=== PATIENT | female | born 2000 | race Caucasian/White ===

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

== ENCOUNTER 2023-01-28 17:47 | Emergency (ER) | payer OTHER, SELFPAY ==
--- NOTE | ~2023-01-28 | XR_ITS ---
XR finger 5th RT min 2V 01/28/2023 18:06 INDICATION: Right fifth finger pain after trauma PROCEDURE: 4 views right fifth finger COMPARISON: No prior studies for comparison. FINDINGS: Fracture, dislocation or subluxation is not identified. The soft tissues appear within norm al limits. No foreign bodies are identified. IMPRESSION: 1: NO ACUTE BONE OR JOINT ABNORMALITY IDENTIFIED. Reviewed, dictated and finalized at location A.
[2023-01-28 17:54] VITALS: BP 122/80; PULSE 102; RESP 18; TEMP 36.4; O2SAT 100
--- NOTE | 2023-01-28 17:59 | ED.UPPEXIN ---
HPI - Extremity Injury (Upper) General Chief Complaint: Extremity Injury, Upper Stated Complaint: Finger Injury Source: patient and RN notes reviewed History of Present Illness HPI narrative: 22 yo F presents to urgent care with complaints of right pinky finger pain and swelling. Pt states about an hour [employer], a headboard fell onto her pinky finger. Pt states she has applied ice which has helped some. Pt denies any other injuries or other complaints. Related Data Home Medications Medication Instructions Recorded Confirmed norgestimate 0.25 mg-ethinyl 1 tablet PO DAILY 09/07/21 01/28/23 estradiol 35 mcg tablet (Estarylla) venlafaxine 37.5 mg 37.5 mg PO DAILY 09/07/21 01/28/23 capsule,extended release 24 hr hydroxyzine HCl 25 mg tablet 25 mg PO TID PRN Anxiety 01/28/23 01/28/23 Allergies Allergy/AdvReac Type Severity Reaction Status Date / Time No Known Allergies Allergy Verified 09/07/21 16:28 Review of Systems Review of Systems: CONSTITUTIONAL: Denies fever, chills, or sweats. EYES: Denies visual changes, redness, or discharge. ENT: Denies otalgia and sore throat CARDIOVASCULAR: Denies chest pain, palpitations, or edema. RESPIRATORY: Denies cough or dyspnea. GASTROINTESTINAL: Denies abdominal pain, nausea, vomiting, or diarrhea. GENITOURINARY: Denies dysuria or hematuria. SKIN: Denies rash or itching. MUSCULOSKELETAL: Right pinky pain and swelling. NEUROLOGIC: Denies headache, numbness, or weakness. Pertinent positives per HPI. [facility] Past Medical History Medical History No acute medical problems Family History Family History Grandparent Hypertension Family history of seizure disorder Mother Hypothyroid Social History Social History Smoking status: Former smoker Tobacco type: e-cigarettes/vaping Alcohol intake: current Comments At the time of my signature, I reviewed and agree with the nursing past medical, surgical, social, and family history. There is no relevant family history pertinent to the patient complaint. Exam Narrative: GENERAL: This is a well-nourished, well-developed patient, in no apparent distress. HEAD: normocephalic, atraumatic. EYES: Sclera clear/white. Vision is grossly intact. EARS: External ears normal, auditory canals clear and without drainage. Hearing grossly intact. NECK: Neck supple, non-tender without lymphadenopathy, masses or thyromegaly. CARDIOVASCULAR: Regular rate RESPIRATORY: No respiratory distress SKIN: warm, intact with no suspicious lesions or rash, good texture and turgor. NEURO: awake, alert, and oriented to person, place and time. There were no obvious focal neurologic abnormalities. EXTREMITIES: Right pinky edema, tenderness, and ecchymosis over proximal phalanx up to PIP joint. Course Course Level of Care: [facility] Visit Vital Signs Vital signs: Vital Signs Temperature 97.5 F L 01/28/23 17:54 Pulse Rate 102 H 01/28/23 17:54 Respiratory Rate 18 01/28/23 17:54 Blood Pressure 122/80 01/28/23 17:54 Pulse Oximetry 100 01/28/23 17:54 Oxygen Delivery Room Air 01/28/23 17:54 Temperature 97.5 F L 01/28/23 17:54 Pulse Rate 102 H 01/28/23 17:54 Respiratory Rate 18 01/28/23 17:54 Blood Pressure 122/80 01/28/23 17:54 Pulse Oximetry 100 01/28/23 17:54 Oxygen Delivery Room Air 01/28/23 17:54 Reviewed MDM - Extremity Injury (Upper) MDM Narrative Medical decision making narrative: Use the RICE method at home. May take ibuprofen and/or Tylenol if needed. If symptoms persist in 1 week after conservative treatment, follow-up with specialist. Differential Diagnosis Differential diagnosis: Likely finger sprain, dislocation of finger and other (Finger fracture) Imaging Data Radiologist's impression: [facility] [place] [facility]
== END 2023-01-28 18:27 | disposition home or self-care (01) ==
PROVIDERS: Emergency Provider Nurse Practitioner Family; PCP Family Medicine
DX: S60.051A Contusion of right little finger without damage to nail, initial encounter (principal); W20.8XXA Other cause of strike by thrown, projected or falling object, initial encounter
CPT/HCPCS: 73140; 99213; G0463

== ENCOUNTER 2023-05-03 18:34 | Emergency (ER) | payer OTHER, SELFPAY ==
--- NOTE | ~2023-05-03 | XR_ITS ---
XR foot RT min 3V DATE: 05/03/2023 18:54 INDICATION: Fall. Inversion injury. There is a linear and reticular other 1. Probably TECHNIQUE: 4 views COMPARISON: None FINDINGS: No fracture or dislocation, periosteal reaction or bone destruction. IMPRESSION: Negative Reviewed, dictated and finalized at location A. IMPRESSION: Negative
--- NOTE | ~2023-05-03 | XR_ITS ---
XR ankle RT min 3V DATE: 05/03/2023 18:54 INDICATION: Fall. Inversion injury. TECHNIQUE: 4 views COMPARISON: None FINDINGS: There is mild lateral soft tissue swelling. No fracture or dislocation of the ankle or disr uption of the ankle mortise. No periosteal reaction or bone destruction. IMPRESSION: Mild lateral soft tissue swelling; no fracture or dislocation Reviewed, dictated and finalized at location A.
[2023-05-03 18:40] VITALS: BP 119/73; PULSE 105; RESP 20; TEMP 36.1; O2SAT 100
--- NOTE | 2023-05-03 19:11 | ED.LOWEXIN ---
HPI - Extremity Injury (Lower) General Chief Complaint: Extremity Injury, Lower Stated Complaint: Fall Injury/Right Ankle Time Seen by Provider: 05/03/23 18:55 Source: patient, RN notes reviewed and old records reviewed Mode of arrival: ambulatory Limitations: no limitations History of Present Illness HPI Narrative: 22-year-old female accompanied by mother presents [facility] with complaints being on step ladder today than rolling her foot and falling off onto her ankle with pain and swelling to the lateral aspect of her right ankle, Patient reports that foot rolled underneath .her and weight went onto lateral ankle with swelling present and most discomfort present to lateral aspect.Patient reports increase pain with movement and walking. Patient has strong pedal pulse to right foot no obvious deformity present. Patient reports she was helping friend paint when she fell. MD complaint: ankle injury and foot injury Onset (ago): hour(s) (12:00 today) Severity scale (1-10): 6 Treatments prior to arrival: other (none) Related Data Home Medications Medication Instructions Recorded Confirmed norgestimate 0.25 mg-ethinyl 1 tablet PO DAILY 09/07/21 01/28/23 estradiol 35 mcg tablet (Estarylla) venlafaxine 37.5 mg 37.5 mg PO DAILY 09/07/21 01/28/23 capsule,extended release 24 hr hydroxyzine HCl 25 mg tablet 25 mg PO TID PRN Anxiety 01/28/23 01/28/23 Allergies Allergy/AdvReac Type Severity Reaction Status Date / Time No Known Allergies Allergy Verified 09/07/21 16:28 Review of Systems Review of Systems: CONSTITUTIONAL: Denies fever, chills, or sweats. EYES: Denies visual changes, redness, or discharge. ENT: Denies rhinorrhea, congestion, sore throat, or otalgia. CARDIOVASCULAR: Denies chest pain, palpitations, or edema. RESPIRATORY: Denies cough or dyspnea. GASTROINTESTINAL: Denies abdominal pain, nausea, vomiting, or diarrhea. GENITOURINARY: Denies dysuria or hematuria. SKIN: Denies rash or itching. MUSCULOSKELETAL: Denies back pain,positive for right ankle pain lateral aspect or myalgia. NEUROLOGIC: Denies headache, numbness, or weakness. PSYCHIATRIC: Positive for history of anxiety or depression. All systems reviewed & are unremarkable except as noted in HPI and below [facility] Past Medical History Medical History (Updated 05/04/23 @ 21:08 by Jackelyn Ellis NP) Anxiety and depression Asthma Bipolar disorder GERD (gastroesophageal reflux disease) Surgical History Surgical History (Updated 05/04/23 @ 21:10 by Jackelyn Ellis NP) History of ear surgery multipe due to holes in TM History of placement of ear tubes History of tonsillectomy and adenoidectomy Family History Family History Grandparent Hypertension Family history of seizure disorder Mother Hypothyroid Social History Social History (Updated 05/04/23 @ 21:10 by Jackelyn Ellis NP) Smoking status: Former smoker Tobacco type: e-cigarettes/vaping Alcohol intake: current Living arrangements: with family Gender identity (if verbalized by the patient): Female Comments At time of signature, agree with nursing past medical, surgical, social and family history. There is no relevant family history pertinent to the presenting complaint Exam Narrative: GENERAL: Well-appearing, well-nourished, and in no acute distress. HEAD: Normocephalic, atraumatic. EYES: PERRLA and EOMI. ENT: Nares clear, no rhinorrhea or epistaxis. Mucous membranes moist. NECK: Supple.no lymphadenopathy CHEST: Clear to auscultation. No respiratory distress.SAO2 100% on room air HEART: Regular rate and rhythm. No murmur heard. Normal peripheral pulses. ABDOMEN: Soft, nontender, nondistended, normal active bowel sounds. EXTREMITIES: Normal range of motion. right lateral ankle edema, strong pedal pulse right foot,nail beds jose briskly, pain to lateral ankle with movement and walking limping gait S
== END 2023-05-03 19:30 | disposition home or self-care (01) ==
PROVIDERS: Emergency Provider Registered Nurse; PCP Family Medicine
DX: S93.401A Sprain of unspecified ligament of right ankle, initial encounter (principal); S96.911A Strain of unspecified muscle and tendon at ankle and foot level, right foot, initial encounter; W17.89XA Other fall from one level to another, initial encounter; M79.671 Pain in right foot; J45.909 Unspecified asthma, uncomplicated; K21.9 Gastro-esophageal reflux disease without esophagitis; F41.9 Anxiety disorder, unspecified; F32.A Depression, unspecified
CPT/HCPCS: 73610; 73630; 99213; G0463

== ENCOUNTER 2023-11-25 19:38 | Emergency (ER) | payer OTHER, SELFPAY ==
[2023-11-25 19:45] VITALS: BP 132/83; PULSE 106; RESP 16; TEMP 36.9; O2SAT 100
[2023-11-25 19:56] VITALS: BP 132/83; PULSE 106; RESP 16; TEMP 36.9; O2SAT 100
--- NOTE | 2023-11-25 19:59 | ED.GENADULT ---
HPI - General Adult General Chief complaint: Upper Respiratory Infection Stated complaint: ears/fever Source: patient, RN notes reviewed and old records reviewed Mode of arrival: ambulatory Limitations: no limitations History of Present Illness HPI narrative: Patient presents to [facility] with complaints of ear pain, lightheadedness and feeling flushed while at work today. Patient states home. Patient states has had congestion for several weeks but states is common for her. Related Data Home Medications Medication Instructions Recorded Confirmed norgestimate 0.25 mg-ethinyl 1 tablet PO DAILY 09/07/21 11/25/23 estradiol 35 mcg tablet (Estarylla) Allergies Allergy/AdvReac Type Severity Reaction Status Date / Time No Known Allergies Allergy Verified 11/25/23 19:48 Review of Systems Constitutional: Constitutional: Reports no additional constitutional complaints, Denies body ache(s), Denies chills, Denies fatigue, Denies fever(s) and Denies headache(s) Eyes: Eyes: Reports no additional eye complaints and Denies blurry vision ENT: Reports system reviewed and no additional complaints, except as documented, Reports vertigo, Denies dizziness, Denies ear discharge, Reports otalgia, Denies facial pain, Denies headache(s), Reports nasal congestion, Denies nasal discharge, Denies sinus pain, Denies sinus pressure and Denies sore throat Cardiovascular: Cardiovascular: Reports no additional cardiovascular complaints, Denies chest pain, Denies chest pain at rest, Denies rapid heart rate and Denies dyspnea Respiratory: Respiratory: Reports no additional respiratory complaints, Denies chest congestion, Denies cough, Denies pain on inspiration, Denies pain with cough and Denies dyspnea Gastrointestinal: Gastrointestinal: Denies abdominal pain, Denies diarrhea, Denies nausea and Denies vomiting Integumentary/Breasts: Skin/Breast: Denies rash Neurologic: Reports system reviewed and no additional complaints, except as documented, Denies vertigo, Denies dizziness and Denies headache(s) Endocrine: Endocrine: Denies fatigue PMFSH Past Medical History Medical History Anxiety and depression Asthma Bipolar disorder GERD (gastroesophageal reflux disease) Surgical History Surgical History History of ear surgery multipe due to holes in TM History of placement of ear tubes History of tonsillectomy and adenoidectomy Family History Family History Grandparent Hypertension Family history of seizure disorder Mother Hypothyroid Social History Social History Smoking status: Former smoker Tobacco type: e-cigarettes/vaping Alcohol intake: current Living arrangements: with family Gender identity (if verbalized by the patient): Female Comments At the time of my signature, I reviewed and agree with the nursing past medical, surgical, social, and family history. There is no relevant family history pertinent to the patient complaint. Exam Const: General: cooperative, healthy appearing, no acute distress and well nourished Nutritional Appearance: well nourished Orientation/consciousness: patient oriented x3 Limitations: no limitations HENMT: Head: normal to inspection and normocephalic Ears: external ears normal, mastoids normal, Abnormal EAC present and TM abnormal wth effusion serous bilateral Face/Nose/Sinus: normal facial exam Face and sinus: normal facial exam Mouth: Yes Normal oral and palatal mucosa present, Yes oropharynx normal and Yes moist mucous membranes Throat: tonsils normal, uvula midline and no uvular edema Eyes: General: appearance normal, both eyes and all related structures Sclera: sclerae normal Pupils: Equal, round and reactive pupils present Resp: Effort & Inspection: no
== END 2023-11-25 19:55 | disposition home or self-care (01) ==
PROVIDERS: Emergency Provider Registered Nurse; PCP Family Medicine
DX: H65.03 Acute serous otitis media, bilateral (principal); Z20.822 Contact with and (suspected) exposure to COVID-19; F17.290 Nicotine dependence, other tobacco product, uncomplicated; J45.909 Unspecified asthma, uncomplicated; K21.9 Gastro-esophageal reflux disease without esophagitis
CPT/HCPCS: 87426; 87804; 99213; G0463

== ENCOUNTER 2024-05-26 11:30 | Emergency (ER) | payer OTHER, SELFPAY ==
--- NOTE | ~2024-05-26 | XR_ITS ---
EXAMINATION: XR chest 2V DATE: 05/26/2024 12:24 INDICATION: Coarse left lung sounds. Sick. TECHNIQUE: Frontal and lateral views of the chest were obtained. COMPARISON: Chest 2 views 11/22/2007 FINDINGS: There is no pneumonia, pleural effusion, or pneumothorax. The heart size is normal. IMPRESSION: 1. No acute cardiopulmonary disease. Reviewed, dictated and finalized at location A.
[2024-05-26 11:42] VITALS: BP 123/80; PULSE 90; RESP 15; TEMP 36.2; O2SAT 100
--- NOTE | 2024-05-26 11:54 | ED.URI ---
HPI - URI/Sore Throat General Chief Complaint: Upper Respiratory Infection Stated Complaint: chest heavy/chills Time Seen by Provider: 05/26/24 11:58 Source: patient, RN notes reviewed and old records reviewed Mode of arrival: ambulatory Limitations: no limitations History of Present Illness HPI Narrative: 23-year-old [facility] chest congestion, chills. 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 Patient tested negative at work this morning. However, patient states symptoms are getting progressively worse. Patient endorses history of asthma. Patient has attempted to treat with ibuprofen with some relief. Patient denies shortness of breath, cough, difficulty swallowing, sore throat, headache, ear pain, chest pain, allergies. Patient able to tolerate fluids by mouth. Patient requesting work note. Respirations even and nonlabored. Patient in no acute distress. Related Data Home Medications Medication Instructions Recorded Confirmed norgestimate 0.25 mg-ethinyl 1 tablet PO DAILY 09/07/21 05/26/24 estradiol 35 mcg tablet (Estarylla) hydroxyzine HCl 25 mg tablet 25 mg PO DAILY 05/26/24 05/26/24 venlafaxine 150 mg 150 mg PO DAILY 05/26/24 05/26/24 capsule,extended release 24 hr Allergies Allergy/AdvReac Type Severity Reaction Status Date / Time No Known Allergies Allergy Verified 11/25/23 19:48 Review of Systems Review of Systems: All systems reviewed & are unremarkable except as noted in HPI and below Constitutional: Constitutional: Reports as per HPI and Reports chills Eyes: Eyes: Reports no additional eye complaints ENT: Reports system reviewed and no additional complaints, except as documented Cardiovascular: Cardiovascular: Reports no additional cardiovascular complaints, Denies chest pain and Denies dyspnea Respiratory: Respiratory: Reports no additional respiratory complaints, Reports chest congestion, Denies cough and Denies dyspnea Musculoskeletal: Musculoskeletal: Reports no additional musculoskeletal complaints Neurologic: Reports system reviewed and no additional complaints, except as documented Psychiatric: Psychiatric: Reports no additional psychiatric complaints [facility] Past Medical History Medical History Anxiety and depression Asthma Bipolar disorder GERD (gastroesophageal reflux disease) Surgical History Surgical History History of ear surgery multipe due to holes in TM History of placement of ear tubes History of tonsillectomy and adenoidectomy Family History Family History Grandparent Hypertension Family history of seizure disorder Mother Hypothyroid Social History Social History Smoking status: Former smoker Tobacco type: e-cigarettes/vaping Alcohol intake: current Living arrangements: with family Gender identity (if verbalized by the patient): Female Comments At the time of my signature, I reviewed and agree with the nursing past medical, surgical, social, and family history. There is no relevant family history pertinent to the patient complaint. Exam Const: General: cooperative, no acute distress, alert, tired appearing, uncomfortable, well groomed and well nourished Nutritional Appearance: well nourished Orientation/consciousness: patient oriented x3 Limitations: no limitations HENMT: Head: normal to inspection Ears: external ears normal Face/Nose/Sinus: Normal external nose present, Normal nares present, normal facial exam, No erythema and No edema Face and sinus: normal facial exam, no erythema and no edema Mouth: Yes Normal oral and palatal mucosa present Eyes: General: appearance normal, both eyes and all related structures
== END 2024-05-26 12:46 | disposition home or self-care (01) ==
PROVIDERS: Emergency Provider Nurse Practitioner Family; PCP Family Medicine
DX: B34.9 Viral infection, unspecified (principal); F17.290 Nicotine dependence, other tobacco product, uncomplicated; J45.909 Unspecified asthma, uncomplicated; K21.9 Gastro-esophageal reflux disease without esophagitis; F41.9 Anxiety disorder, unspecified; F32.A Depression, unspecified
CPT/HCPCS: 71046; 99213; G0463

== ENCOUNTER 2024-07-27 15:44 | Emergency (ER) | payer OTHER, SELFPAY ==
[2024-07-27 16:06] VITALS: BP 143/86; PULSE 93; RESP 16; TEMP 36.3; O2SAT 100
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
[2024-07-27] MEDS: SUMAtriptan SUCCINATE 6 MG/0.5 ML VIAL SUB-Q (17:14)
[2024-07-27] MEDS: ONDANSETRON HCL ODT 4 MG TABLET PO (18:12)
[2024-07-27 18:19] LABS: Add Urine Microscopic? YES; Appearance Urine Cloudy (Clear); Bacteria Urine 1+ /hpf; Bilirubin Urine Negative (Negative); Blood Urine Negative (Negative); Color Urine Yellow (Yellow); Glucose Urine UA Negative (Negative); Ketones Urine Negative (Negative); Leukocyte Esterase Ur Negative LEU/UL (Negative); Nitrate Urine Negative (Negative); Non Pathogenic Casts 0-2; Protein Urine Negative (Negative); Specific Grav Ur 1.022 (1.001-1.035); Squamous Epithelial Cell Urine Few /hpf (Few); WBC Urine 0-5 /hpf (0-3); pH Urine 7.5 (5.0-9.0)
[2024-07-27 18:24] LABS: BEDSIDEPREGUCG Negative (Negative)
[2024-07-27 18:31] LABS: Amphetamine Screen Urine Negative (Negative); Barbiturate Screen Urine Negative (Negative); Benzodiazepines Screen Urine Negative (Negative); Cannabinoid Screen Urine Positive (Negative); Cocaine Screen Urine Negative (Negative); Methadone Screen Urine Negative (Negative); Opiate Screen Urine Negative (Negative); Phencyclidine Screen Urine Negative (Negative)
[2024-07-27 18:36] LABS: Pregnancy On Board Control Positive; Urine Pregnancy Test Negative
[2024-07-27 19:13] VITALS: BP 129/76; PULSE 87; RESP 15; TEMP 36.8; O2SAT 100
== END 2024-07-27 19:14 | disposition home or self-care (01) ==
PROVIDERS: Emergency Provider Nurse Practitioner Family; PCP Family Medicine
DX: G43.909 Migraine, unspecified, not intractable, without status migrainosus (principal); J45.909 Unspecified asthma, uncomplicated; K21.9 Gastro-esophageal reflux disease without esophagitis; F41.9 Anxiety disorder, unspecified; F31.9 Bipolar disorder, unspecified; Z87.891 Personal history of nicotine dependence
CPT/HCPCS: 36415; 80307; 81001; 81025; 96372; 99283; A9270; J3030

== ENCOUNTER 2025-01-12 17:55 | Emergency (ER) | payer OTHER, SELFPAY ==
--- OUTSIDE RECORDS SUMMARY | 2025-01-12 17:56 | XMS_ITS | Clinical Summary ---
Author Organization [facility] Address [address] [facility] [place] [address] Care Team Providers Care Counter Supervisor Name Role Phone Lashell Terrazas MD Primary Care Provider [phone] [facility],non-owned Affiliates and Associated Physician Practices is amultiple site organization consisting of ambulatory clinics and hospital sitesin [place], [place], [place] and [place]. This disclosure is being madepursuant to the Care Everywhere program and may not contain all information available regarding this patient. Last updated 18.[facility] Allergies No known active allergies Medications * Be aware that medications may not be up to date on this document. Alwaysverify current medications with the patient. Medication Sig Dispensed Refills Start Date End Date Status cetirizine (ZYRTEC ALLERGY) 10 MG gel capsule Take 10 mg by mouth once daily. Active Active Problems Problem Noted Date Diagnosed Date ADHD (attention deficit hyperactivity disorder) 12/31/2012 Family History Medical History Relation Name Comments Anesthesia Reaction Mother Bleeding Disorders Neg Hx Childhood Hearing Disorder Neg Hx Relation Name Status Comments Mother Social History Tobacco Use Types Packs/Day Years Used Date Smoking Tobacco: Never Assessed Sex and Gender Information Value Date Recorded Sex Assigned at Not on file Gender Identity Not on file Sexual Orientation Not on file Last Filed Vital Signs Vital Sign Reading Time Taken Comments Blood Pressure 110/62 12/09/2016 5:27 PM [facility] Pulse 86 12/09/2016 5:27 PM [facility] [employer] Temperature 36.8 C (98.3 F) 12/09/2016 5:27 PM [facility] Respiratory Rate 16 12/09/2016 5:27 PM [facility] Oxygen Saturation - - Inhaled Oxygen Concentration - - Weight 59.9 kg (132 lb) 12/09/2016 5:27 PM [facility] Height 162.6 cm (5' 4 ) 12/09/2016 5:27 PM [facility] Body Mass Index 22.66 12/09/2016 5:27 PM [facility] Plan of Treatment Health Maintenance Due Date Last Done Comments PAP SMEAR 2002 HIV SCREENING 2017 HPV VACCINE (1 - 3-dose series) 2017 CHLAMYDIA/GONORRHEA SCREENING 2018 MENINGOCOCCAL (Group B) VACC INE SHARED DECISION-MAKING (1 of 2 - Standard) 2018 HEPATITIS C SCREENING 07/17/2020 DTAP/TDAP/TD VACCINES (1 - Tdap) 2021 HEPATITIS B VACCINE (1 of 3 - 19+ 3-dose series) 2021 COVID-19 VACCINE (1 - 2023-2 5 season) 2024 INFLUENZA VACCINE (#1) 2024 DEPRESSION SCREENING 10/12/2024 ZOSTER VACCINE (1 of 2) 2052 HIB VACCINE Aged Out No longer eligi ble based on patient's age to complete this topic MENINGOCOCCAL GROUPS A/C/Y/W VACCINE Aged Out No longer eligible b ased on patient's age to complete this topic PNEUMOCOCCAL VACCINE Aged Out No long er eligible based on patient's age to complete this topic Care Teams Counter Supervisor Relationship Specialty Start Date End Date Lashell Terrazas MD [address] [place] [address] DR MATHIS [address] [place] [id number] PCP - General 01/13/12
--- OUTSIDE RECORDS SUMMARY | 2025-01-12 17:56 | XMS_ITS | Clinical Summary ---
Author Organization [facility] Address [facility] [place] [address] Care Team Providers Care Occup Ther Name Role Phone Unavailable Primary Care Provider Unavailabl e Social History Tobacco Use Types Packs/Day Years Used Date Smoking Tobacco: Never Assessed Comments Unknown Sex and Gender Information Value Date Recorded Sex Assigned at Not on file Legal Sex Female 4:41 PM CDT Gender Identity Not on file Sexual Orientation Not on file Plan of Treatment Health Maintenance Due Date Last Done Comments Cervical Cancer Screening Pa p Smear (Age 21 to 29) Every 3 Years 2002 Cervical Cancer Screening 2002 Annual Physical 2005 HPV Vaccines (1 - 3-dose series) 2017 Meningococcal B Vaccine (1 o f 2 - Standard) 2018 Hepatitis C 2020 DTaP, Tdap and Td Vaccines ( 1 - Tdap) 2021 Hepatitis B Vaccines (1 of 3 - 19+ 3-dose series) 2021 COVID-19 Vaccine (1 - 2023-2 5 season) 2024 Meningococcal Vaccine Aged Out No mike paige eligible based on patient's age to complete this topic Pneumococcal Vaccine: Pediat rics (0 to 5 Years) and At-Risk Patients (6 to 64 Years) Aged Out No longer eligible b ased on patient's age to complete this topic RSV Immunizations Under 20 Months Aged Out No longer eligible based on patient's age to complete this topic
--- OUTSIDE RECORDS SUMMARY | 2025-01-12 17:56 | XMS_ITS | Clinical Summary ---
Author Organization [facility] ospital Address [address] [place] [address] Care Team Providers Care Legal Administrative Assistant Name Role Phone Madan Roblero MD Primary Care Provider [phone] Allergies No known active allergies Medications EPINEPHrine (AUVI-Q) 0.3 mg/0.3 mL auto-injection syringeIndication s:Anaphylaxis Inject 0.3 mL (0.3 mg total) into the muscle as instructed as needed for anaphylaxis 4 each 1 Active Additional Information Patient not taking.Reported on 08/01/2024 ondansetron ODT (ZOFRAN-ODT) 4 mg disintegrating tablet Take 1 tablet (4 mg total) by mouth every 8 (eight) hours as needed for nausea or vomiting 20 tablet Active SUMAtriptan (IMITREX) 25 mg tablet Patient has not picked up script yet, was not ready at pharmacy. Active ALPRAZolam (XANAX) 0.5 mg tablet Take 1 tablet by mouth 1 hour prior to MRI and 1 tablet immediately prior to MRI. 2 tablet Active venlafaxine XR (EFFEXOR-XR) 150 mg 24 hr capsule TAKE 1 CAPSULE(150 MG) BY MOUTH DAILY 100 capsule 1 11/25/2 024 Active hydrOXYzine (ATARAX) 25 mg tablet TAKE 1 TABLET(25 MG) BY MOUTH EVERY 8 HOURS NEEDED FOR ANXIETY 270 tablet 025 Active Estarylla 0.25-35 mg-mcg per tablet TAKE 1 TABLET BY MOUTH DAILY 84 tablet 025 Active hydrOXYzine (ATARAX) 25 mg tablet TAKE 1 TABLET(25 MG) BY MOUTH EVERY 8 HOURS NEEDED FOR ANXIETY 270 tablet 024 2024 Discontinued norgestimate-ethi nyl estradioL (Estarylla) 0.25-35 mg-mcg per tablet TAKE 1 TABLET BY MOUTH DAILY 84 tablet 025 2024 Discontinued Active Problems Problem Noted Date Diagnosed Date Severe episode of recurrent major depressive disorder, without psychotic features 08/11/2024 Ankle injury 10/29/2023 Contusion of finger 10/29/2023 Foot pain, right 10/29/2023 JENNIFER (generalized anxiety disorder) 10/29/2023 Assessment & Plan (10/29/2023 11:18 AM HEAD SWAMPER): Patient is doing well, continue venlafaxine. She is taking hydroxyzine nightly to help asleep. Sleeping well. Patient feels that she is benefitting from the emotional support provided by her animals. Nonintractable episodic headache 10/29/2023 Assessment & Plan (10/29/2023 11:21 AM HEAD SWAMPER): Recommended continuing to drink plenty of fluids. Encouraged patient to get plenty of sleep, at least 8 hours nightly. Eat regular meals throughout the day. Recommended she keep headache log to track potential triggers. Encouraged follow-up with Ophthalmology as patient states that she is previously recommended to wear glasses which she currently does not. Explained how this can be contributing to headache and sometimes headaches can increase while adjusting to prescription lenses. Reviewed red flags Recurrent major depression 07/01/2022 Assessment & Plan (10/29/2023 11:18 AM HEAD SWAMPER): Moods are stable at this time. Continue present management with venlafaxine. Assessment & Plan (10/03/2022 9:15 AM HEAD SWAMPER): Reviewed pharmacologic treatment options for management of anxiety including SSRI/SNRIs. Patient to continue venlafaxine and will add buspirone 5 mg three times daily. Reviewed medication and adverse effects. Encouraged patient to engage with counselor again, discussed benefits of counseling with problems related to family dynamics. Recommend healthy eating and regular exercise. Seek immediate medical attention if experiencing SI/HI. Will continue to monitor. Follow-up in 3 months. Depression with anxiety 01/14/2021 COVID-19 04/15/2020 Assessment & Plan (04/15/2020 12:59 AM CDT): Tabitha is a 19 year old female with PMH significant for mild intermittent asthma who presents with tachypnea, tachycardia, and chest pain in the setting of a known Covid 19 infection. Her symptoms are currently mild to moderate, she is afebrile, in no respiratory distress, and not requiring any supplemental oxygen. She could have an early covid pneumonia or bacterial pneumonia, but normal exam findings and chest xray from ED does without any focal process or congestion are reassuring. She is at higher risk for DVT/PE since Covid can cause hypercoagulability but she does not have any other risk factors and her current exam is reassuring without any signs of tachypnea, tachycardia, or calf pain or swelling. Given her asthma history, her differential includes an asthma exacerbation, but since she did not note much symptom improvement with albuterol, and lack of wheeze on exam, this is less likely, but will continue to treat her for an asthma exacerbation with albuterol given her potential risk for development or worsening of asthma symptoms. Current evidence mixed on initiation of systemic steroids for Covid positive patients with mild asthma. She did receive prednisone in the ED, will likely watch clinical course to determine need for continued oral steroid use. Discussed with Mom current CDC guidelines regarding community Covid exposure and risk. Informed Mom that regardless of Covid test results, close contacts including herself, Dad, and step Mom should all self isolate for 14 days to monitor for the development of symptoms. Any other close contacts to known positive cases such as Tabitha 2 days prior to the case developing symptoms or any contact during symptomatic period should also self isolate for 14 days. Of note, Tabitha did work a few days after developing symptoms, her employer has been informed. Plan: -Albuterol inhaler q4 hours -S/p prednisone 7/4 pm, will discuss need for continued steroid need pending clinical course -Contact and droplet precautions with face shield -Monitor for development DVT/PE signs and symptoms -Tylenol PRN Mild intermittent asthma without complication Assessment & Plan (04/15/2020 1:05 AM CDT): History of mild intermittent asthma. Prior to Covid infection, symptom had been minimal without use of or need for albuterol or flovent. Minimal wheezing noted on exam, but will treat as if an asthma exacerbation to prevent worsening of symptoms given Covid infection. Plan: -q4 albuterol inhaler -Hold home flovent while on oral steroids Acute urticaria 05/12/2019 Angio-edema 05/12/2019 History of tympanoplasty 02/17/2018 ETD (Eustachian tube dysfunction), bilateral 07/2018 Assessment & Plan (10/29/2023 11:17 AM HEAD SWAMPER): No evidence of perforation today. Scarring noted bilaterally, right greater than left. Recommended patient use Flonase nasal spray to help with fluid/pressure in ears. Referral placed to ENT. No evidence of infection. Assessment & Plan (04/15/2020 1:00 AM CDT): History of chronic bilateral eustachian tube dysfunction and bilateral chronic otitis externa. Current symptoms typical for patient. Plan: -Continue home ocuflox drops ETD (eustachian tube dysfunction) 10/21/2017 History of surgical procedure 10/21/2017 Cerumen debris on tympanic membrane, bilateral 0 04/29/2017 Conductive hearing loss in right ear 04/29/2017 Conductive hearing loss, bilateral 05/14/2016 Compound nevus 02/15/2014 ADHD (attention deficit hyperactivity disorder) 12/31/2012 Adhesive otitis 08/04/2012 Tympanic membrane perforation 05/25/2012 Arthralgia of ankle 01/13/2012 Right ankle sprain 03/21/2010 Immunizations Immunization Administration Dates Next Due DTP 07/30/2007,11/03/2003,03/03/2003 DTaP 2002,2002 HPV9 05/11/2020,10/31/2019,03/10/2019 Hep A, Pediatric 05/11/2020,06/19/2015 Hep B / HiB 02/03/2003 Hep B, Adolescent or Pediatric 2002,2001 HiB 11/03/2003,2002,2002 IPV 07/30/2007, 4,2002,09/19 Influenza LAIV (Nasal) 08/16/2012 Influenza, Quadrivalent, Spl it, Intramuscular 08/07/2015 Influenza, Quadrivalent, Spl it, Preservative Free, Intramuscular 07/26/2018 Influenza, Split 08/03/2009 Influenza, Trivalent, IM (MDV) 08/25/2014,2012 Influenza, Trivalent, Preser vative Free, Intramuscular 10/13/2016,08/26/2011 Influenza, Unspecified 10/29/2023(Deferr ed: Patient Refused),11/12/2022(Deferred: Patient Refused),10/03/2022(Deferred: Patient Refused),07/01/2022(Deferred: Patient Refused),06/12/2022(Deferred: Patient Refused),07/12/2021(Deferred: Patient Refused),07/12/2021(Deferred: Patient Refused) MMR 07/30/2007,07/28/2003 Meningococcal Conjugate (Menveo) 10/31/2019,07/0 11/2013 Pneumococcal Conjugate 7-Valent 07/25/20 04,02/03/2003,2002,09/19 Tdap 04/12/2014 Varicella 07/30/2007,07/28/2003 Surgical History Surgery Date Site/Laterality Comments TYMPANOSTOMY TUBE PLACEMENT Ear Pressure Equalization Tube, Insertion, Bilaterally - (Added by TW Conv) [place] TONSILLECTOMY & ADENOIDECTOMY <AGE 12 10/12/2004 - 10/11/2005 Tonsillectomy With Adenoidectomy - (Added by TW Conv) ADENOIDECTOMY W/ MYRINGOTOMY AND TUBES TONSILECTOMY, ADENOIDECTOMY, BILATERAL MYRINGOTOMY AND TUBES Medical History Medical History Date Comments Urticaria Mild intermittent asthma Otitis externa, chronic History of being hospitalized [facility] for pneumonia at 10 years of age, another stay for COVID 04/2020 Depression Anxiety Family History Medical History Relation Name Comments Anxiety disorder Father Depression Father Alzheimer's disease Maternal Grandfather Diabetes Maternal Grandfather Heart disease Maternal Grandfather Kidney disease Maternal Grandfather Stroke Maternal Grandfather Allergic rhinitis Mother Asthma Mother Cervical cancer Mother Epilepsy Mother Hypothyroidism Mother Sleep apnea Mother Relation Name Status Comments Father Maternal Grandfather Mother Social History Tobacco Use Types Packs/Day Years Used Date Smoking Tobacco: Every Day Cigarettes Smokeless Tobacco: Former Tobacco Cessation:Ready to Q uit: Not Asked; Counseling Given: Not Answered Alcohol Use Standard Drinks/Week Comments No 0 (1 standard drink = 0.6 oz pur e alcohol) PHQ-2 Answer Date Recorded PHQ-2 Total Score (If total score is 3 or more points, staff should administer the PHQ-9) 0 08/01/2024 Comments No Sex and Gender Information Value Date Recorded Sex Assigned at Not on file Legal Sex Female 1:03 AM HEAD SWAMPER Gender Identity Not on file Sexual Orientation Not on file History Length Weight Head Circum Date/Time Gestation Age D/C Weight APGARs Delivery Method Feeding 6 lb 10 oz (3.005 kg) 2000 Born 3.5 weeks early. Did no t require ventilatory support. May have required supplemental oxygen support. Obstetrics History Last Filed Vital Signs Vital Sign Reading Time Taken Comments Blood Pressure 116/88 08/01/2024 11:18 AM CDT Pulse 95 08/01/2024 11:18 AM CDT Temperature 36.8 C (98.3 F) 08/01/2024 11:18 AM CDT Respiratory Rate 18 08/01/2024 11:18 AM CDT Oxygen Saturation 98% 08/01/2024 11:18 AM CDT room air Inhaled Oxygen Concentration - - Weight 78.7 kg (173 lb 6.4 oz) 08/01/2024 11:18 AM CDT Height 170.2 cm (5' 7.01 ) 08/01/2024 11:18 AM C DT Body Mass Index 27.15 08/01/2024 11:18 AM CDT Plan of Treatment Health Maintenance Due Date Last Done Comments Cervical Cancer Screening 2002 Chlamydia and Gonorrhea (GC/ CT) Screening 2002 Hepatitis C Screening 2002 Pneumococcal vaccine <65 (1 of 1 - PPSV23) 2008 07/25/2004, 02/03/2003, 2002, Additional history exists Meningococcal B Vaccine (1 o f 2 - Standard) 2018 Regular Well Visit/Exam 18-64 2020 DTaP/Tdap/Td Vaccine (7 - Td or Tdap) 04/12/2024 04/12/2014, 07/30/2007, 11/03/2003, Additional history exists Influenza Vaccine (Season Ended) 2025 07/26/2018, 10/13/2016, 08/07/2015, Additional history exists Depression Screening 08/01/2025 08/01/2024, 10/29/2023, 11/12/2022, Additional history exists Hepatitis B Screening Completed 02/03/2003 , 2002, 2002 Varicella Vaccines Completed 07/30/2007, 07/28/2003 HPV Vaccines Completed 05/11/2020, 10/13, 03/10/2019 Insurance [facility] [place] [address] [place] [address] [employer] [facility] CHOICE PLUS [employer] Address: [address] [place] [address] Advance Directives For more information, please contact: [phone] * Full Code (Latest Code Status on File) Date Activated Date Inactivated Comments 04/14/2020 11:06 PM 04/15/2020 10:15 PM Care Teams Legal Administrative Assistant Relationship Specialty Start Date End Date Madan Roblero MD [address] [place] [address] PCP - General Family Medicine 07/01/22
--- OUTSIDE RECORDS SUMMARY | 2025-01-12 17:56 | XMS_ITS | Referral Summary ---
Author Organization [facility] ospital Address [address] [place] [address] Care Team Providers Care Sand Analyst Name Role Phone Madan Roblero MD Primary Care Provider [phone] Allergies No known active allergies Medications EPINEPHrine [...] 10/29/2023 Assessment & Plan (10/29/2023 11:18 AM LIVESTOCK SPECULATOR): Patient is doing well, continue venlafaxine. She is taking hydroxyzine nightly to help asleep. Sleeping well. Patient feels that she is benefitting from the emotional support provided by her animals. Nonintractable episodic headache 10/29/2023 Assessment & Plan (10/29/2023 11:21 AM LIVESTOCK SPECULATOR): Recommended continuing to drink plenty of fluids. [...] 07/01/2022 Assessment & Plan (10/29/2023 11:18 AM LIVESTOCK SPECULATOR): Moods are stable at this time. Continue present management with venlafaxine. Assessment & Plan (10/03/2022 9:15 AM LIVESTOCK SPECULATOR): Reviewed pharmacologic treatment options for management of [...] 07/2018 Assessment & Plan (10/29/2023 11:17 AM LIVESTOCK SPECULATOR): No evidence of perforation today. Scarring noted [...] Patient Refused) MMR 07/30/2007,07/28/2003 Meningococcal Conjugate (Menveo) 10/31/2019,07/11/2013 Pneumococcal Conjugate 7-Valent 07/25/20 04,02/03/2003,2002,09/19 Tdap 04/12/2014 Varicella 07/30/2007,07/28/2003 Social History Tobacco Use Types Packs/Day Years [...] on file Legal Sex Female 1:03 AM LIVESTOCK SPECULATOR Gender Identity Not on file Sexual Orientation [...] 08/01/2024 11:18 AM CDT Plan of Treatment Not on file Insurance [facility] [place] [address] [facility] [place] [address] [employer] Advance Directives For more information, please contact: [phone] * Full Code (Latest Code Status on File) Date Activated Date Inactivated Comments 04/14/2020 11:06 PM 04/15/2020 10:15 PM Care Teams Sand Analyst Relationship Specialty Start Date End Date Madan Roblero MD [address] [place] [address] PCP - General Family Medicine 07/01/22
--- OUTSIDE RECORDS SUMMARY | 2025-01-12 17:57 | XMS_ITS | Clinical Summary ---
Author Organization [facility] Address [address] [place] [address] Phone Care Team Providers Care Call Out Clerk Name Role Phone Lashell Rasheed MD Primary Care Provider [phone] Allergies No known active allergies Medications VENLAFAXINE HCL PO Take 150 mg by mouth. Active OMEPRAZOLE PO Take by mouth. A ctive ibuprofen (MOTRIN) 600 MG Tablet Take 1 Tablet by mouth every 6 hours as needed for Moderate or more severe pain. 28 Tablet 2 Active orphenadrine (NORFLEX) 100 MG TABLET SR 12 HR Take 1 Tablet by mouth 2 times daily as needed (pain). 14 Tablet 2 Active Additional Information Patient not taking.Reported on 10/28/2022 busPIRone (BUSPAR) 5 MG Tablet Take 5 mg by mouth 3 times daily. Active hydrOXYzine (ATARAX) 25 MG Tablet Take 25 mg by mouth every 6 hours as needed. Active Active Problems Problem Noted Date Diagnosed Date Depression with anxiety 01/14/2021 Family History Medical History Relation Name Comments Depression Mother Relation Name Status Comments Mother Social History Tobacco Use Types Packs/Day Years Used Date Smoking Tobacco: Some Days Cigarettes Smokeless Tobacco: Current Tobacco Cessation:Ready to Q uit: Not Asked; Counseling Given: Not Answered Alcohol Use Standard Drinks/Week Comments Never 0 (1 standard drink = 0.6 oz pur e alcohol) once a week, one shot PHQ-2 Answer Date Recorded Total Score - Questions 1-9 0 01/11 Sexually Active Control Partners Comments Never Oral Contraceptive Male Comments Unknown Sex and Gender Information Value Date Recorded Sex Assigned at Not on file Legal Sex Female 12:24 AM CDT Gender Identity Not on file Sexual Orientation Not on file Last Filed Vital Signs Vital Sign Reading Time Taken Comments Blood Pressure 118/71 03/03/2022 1:14 AM CDT Pulse 102 03/03/2022 1:14 AM CDT Temperature 36.2 C (97.2 F) 03/02/2022 8:43 PM CDT Respiratory Rate 16 03/03/2022 1:14 AM CDT Oxygen Saturation 100% 03/03/2022 1:14 AM CDT Inhaled Oxygen Concentration - - Weight 61.7 kg (136 lb) 03/02/2022 8:43 PM CDT Height 165.1 cm (5' 5 ) 03/02/2022 8:43 PM CDT Body Mass Index 22.63 03/02/2022 8:43 PM CDT Plan of Treatment Health Maintenance Due Date Last Done Comments Hepatitis C Virus (HCV) Screening 2002 Meningococcal B Immunization (1 of 2 - Standard) 2018 Pap Smear 2023 Influenza Immunization (#1) 06/12/202407/12, 10/13/2016, 08/07/2015, Additional history exists SARS-COV-2 Immunization ( - season) 2024 01/06/2021 Respiratory Syncytial Virus (RSV) Immunization (Adult) (1 - 1-dose 75+ series) 2077 Hepatitis B Immunization Completed 003, 2002, 2002 Pneumococcal Immunization Combined Aged Out 07/25/2004, 02/03/2003, 2002, Additional history exists No longer eligible based on patient's age to complete this topic Measles Mumps Rubella (MMR) Immunization Discontinued 07/30/2007, 07/28/2003 Polio (IPV) Immunization Discontinued 007, 11/03/2003, 2002, Additional history exists Varicella Immunization Discontinued 07/30/2007, 2002 DTaP/Tdap/Td Immunization Discontinued 2013, 07/30/2007, 11/03/2003, Additional history exists TdaP Immunization Completed 04/12/2014 Meningococcal Immunization (ACWY) Completed 10/31/2019, 04/12/2014 Hepatitis A Immunization Discontinued 05/11/2020, 05/2015 Human Papillomavirus (HPV) Immunization Completed 05/11/2020, 10/31/2019, 03/10/2019 Rotavirus Immunization Aged Out No lo nger eligible based on patient's age to complete this topic Goals Goal Patient Goal Type Associated Problems Recent Progress Patient-Stated? Author Behavioral Health Behavioral Health On track( 023 10:39 AM CDT) Yes Arti Pena LCSW Note: I want to learn how to be less stressed out all the time. Behavioral Health Behavioral Health On track( 023 10:39 AM CDT) No Arti Pena LCSW Note: Goal: patient will be able to report improved mood to an acceptable level within the next three months Goal Reviewed with: patient Readiness to change: Ready to change Department associated with goal: [facility] Steps to achieve goal: Patient counseled on coping with depression Patient counseled on healthy coping skills for stress/ways to reduce anxiety 3. Patient will participate in twice-monthly therapy sessions Behavioral [facility] Behavioral Health On track( 023 10:39 AM CDT) Yes Arti Pena LCSW Note: I want to work on my anxiety, it gets bad at night, my body twitches Goal/Objective: Increase coping skills for anxiety. Anticipated Time Frame for Goal Completion: 6 months Goal Reviewed with: patient Readiness to change: Ready to change Department associated with goal: [facility] Steps to achieve goal: will identify at least two coping skills/activities/habits that have helped to manage anxiety in the past. will identify at least three new coping skills/activities/habits that may help to prevent and/or cope with anxiety. 3. will identify a plan to implement coping skills and follow this plan for two weeks and evaluate the impact on anxiety 4. Will attend individual and/or group therapy at least 1x/month at least 6 sessions Insurance MEDICAID [place] [employer] [place] Care Teams Call Out Clerk Relationship Specialty Start Date End Date Lashell Rasheed MD [address] [place] [address] [address] MATHIS [address] [place] [id number] PCP - General Pediatrics 11/19/20
--- NOTE | 2025-01-12 18:03 | ED.GENADULT ---
HPI - General Adult General Chief complaint: Upper Respiratory Infection Stated complaint: Sinus Problem/Ear Pain/Skin Sore Time Seen by Provider: 01/12/25 18:16 Source: patient, family, RN notes reviewed and old records reviewed Mode of arrival: ambulatory Limitations: no limitations History of Present Illness HPI narrative: 24-year-old female presents to the [facility] with complaints of sinus congestion, ear pain for approximately 5-7 days. Patient also is concern for the right breast, scabbed over sore with surrounding erythema. Patient reports that about a week ago she had a pimple on the right breast, popped it. Now has a scabbed over area with surrounding erythema. Related Data Home Medications ?Medication ?Instructions ?Recorded ?Confirmed ?Last Taken ?Type norgestimate 0.25 mg-ethinyl 1 tablet PO DAILY 09/07/21 05/26/24 Unknown History estradiol 0.035 mg tablet (Estarylla) hydroxyzine HCl 25 mg tablet 25 mg PO DAILY 05/26/24 05/26/24 Unknown History venlafaxine 150 mg 150 mg PO DAILY 05/26/24 05/26/24 Unknown History capsule,extended release 24 hr Allergies Allergy/AdvReac Type Severity Reaction Status Date / Time No Known Allergies Allergy Verified 11/25/23 19:48 Review of Systems Review of Systems: All systems reviewed & are unremarkable except as noted in HPI and below Constitutional: Constitutional: Reports no additional constitutional complaints ENT: Reports as per HPI Cardiovascular: Cardiovascular: Reports no additional cardiovascular complaints, Denies chest pain and Denies dyspnea Respiratory: Respiratory: Reports no additional respiratory complaints, Denies chest congestion, Denies cough and Denies dyspnea Musculoskeletal: Musculoskeletal: Reports no additional musculoskeletal complaints Integumentary/Breasts: Skin/Breast: Reports as per HPI [facility] Past Medical History Medical History GERD (gastroesophageal reflux disease) Asthma Bipolar disorder Anxiety and depression Surgical History Surgical History History of ear surgery multipe due to holes in TM History of tonsillectomy and adenoidectomy History of placement of ear tubes Family History Family History Grandparent Hypertension Family history of seizure disorder Mother Hypothyroid Social History Social History Smoking status: Former smoker Tobacco type: e-cigarettes/vaping Alcohol intake: current Living arrangements: with family Gender identity (if verbalized by the patient): Female Comments At the time of my signature, I reviewed and agree with the nursing past medical, surgical, social, and family history. There is no relevant family history pertinent to the patient complaint. Exam Const: General: cooperative, healthy appearing, comfortable, no acute distress, well developed, alert and well nourished Nutritional Appearance: well nourished Orientation/consciousness: patient oriented x3 Limitations: no limitations HENMT: Head: normal to inspection Ears: hearing grossly normal bilaterally, external ears normal, EAC's normal, mastoids normal, no periauricular adenopathy and TM abnormal with fluid behind the TM bilateral; not bulging Face/Nose/Sinus: Normal external nose present, Normal nares present, sinuses nontender and face symmetric Mouth: Yes Normal oral and palatal mucosa present, Yes lip normal, Yes tongue normal and Yes moist mucous membranes Throat: posterior oropharynx normal, uvula midline, postnasal drainage and no uvular edema Eyes: General: appearance normal, both eyes and all related structures Alignment and Position: alignment normal Neck: Neck: normal visual inspection, full ROM, no lymphadenopathy and no meningeal signs Chest: Chest palpation & inspection: normal inspection of the chest Resp: Effort & Inspection: normal respiratory effort and able to speak in complete sentences Auscultation: clear to auscultation bilaterally, no crackles, no rales, no rhonchi and no wheezes Cardio: Rate: regular rate Skin: General skin exam: normal color and no rashes or lesions noted Other: 1 cm scabbed over area medial mid breast right. 2 cm reddened area surrounding. Tender to touch. No fluctuance. No drainage noted. Neuro: General: patient oriented x3, gait normal, moves all extremities and no meningeal signs Cognition (Neuro): normal cognition Speech: normal speech Gait exam (Neuro): Normal gait present Extrem: General: normal to inspection, full ROM, capillary refill normal and normal gait Psych: Appearance: grossly normal and well kempt Mental Status: mental status grossly normal Speech and movement: Normal speech and movement present and Clear speech present Affect: normal affect Attitude: cooperative Course Course Emergency Course: Discharge instructions reviewed with parent/patient, as well as provided in writing per nursing staff. The instructions also include specific and strict return/GO TO THE ER as well as f/u information. All questions have been answered, and the parent/patient deny any further questions with discharge and discharge plan. Some parts of this dictation were generated by voice recognition software and may contain typographical and/or grammatical inaccuracies. Level of Care: Express Care Visit Vital Signs Vital signs: Vital Signs Temperature 97.6 F 01/12/25 18:08 Pulse Rate 113 H 01/12/25 18:08 Respiratory Rate 16 01/12/25 18:08 Blood Pressure 142/86 H 01/12/25 18:08 Pulse Oximetry 98 01/12/25 18:08 Oxygen Delivery Room Air 01/12/25 18:08 Temperature 97.6 F 01/12/25 18:08 Pulse Rate 113 H 01/12/25 18:08 Respiratory Rate 16 01/12/25 18:08 Blood Pressure 142/86 H 01/12/25 18:08 Pulse Oximetry 98 01/12/25 18:08 Oxygen Delivery Room Air 01/12/25 18:08 reviewed Medical Decision Making MDM Narrative Medical decision making narrative: Patient sitting comfortably in exam room. Nontoxic, vitals stable. Patient in no acute distress. Patient presents with 2 concerns 1 URI most likely viral. Second popped a pimple on her breast, now red and inflamed, tender, will treat for cellulitis stressed the importance of follow as well as signs and symptoms of proceed to the emergency room for further evaluation which she verbalized understanding and so did mom. Medical Records Medical records reviewed: Yes I reviewed the external patient's medical records. Vital Signs Vital Signs: Vital Signs Temperature 97.6 F 01/12/25 18:08 Pulse Rate 113 H 01/12/25 18:08 Respiratory Rate 16 01/12/25 18:08 Blood Pressure 142/86 H 01/12/25 18:08 Pulse Oximetry 98 01/12/25 18:08 Oxygen Delivery Room Air 01/12/25 18:08 Temperature 97.6 F 01/12/25 18:08 Pulse Rate 113 H 01/12/25 18:08 Respiratory Rate 16 01/12/25 18:08 Blood Pressure 142/86 H 01/12/25 18:08 Pulse Oximetry 98 01/12/25 18:08 Oxygen Delivery Room Air 01/12/25 18:08 reviewed Lab Data Lab results reviewed: Yes I reviewed the patient's lab results. Labs: Lab Results 01/12/25 Range/Units 18:41 POC Influenza A Ag Negative (Negative) POC Influenza B Ag Negative (Negative) POC SARS CoV-2 Ag Negative (Negative) reviewed Critical Care Time Critical Care Time Critical Care Time: No Discharge Plan Discharge Clinical Impression: Cellulitis of right breast Patient Disposition: Home, Self-Care Condition: Stable Instructions: Antibiotic Form, Cellulitis (ED), Sinusitis (ED) Additional Instructions: Your rapid COVID test were negative Your rapid flu test was negative Your symptoms are likely due to a viral illness, which is not treated with antibiotics. Typically viral infections last 7-10 days, can linger for couple of weeks. It is very important to treat your symptoms. Drink plenty of water, Gatorade, Pedialyte, ice pops or Jell-O. -Alternate Tylenol and Motrin per package directions for fever or pain. You can alternate every 4 hours -Antihistamine medication such as Zyrtec/Claritin/Cris during the day can help improve symptoms. -doing daily nasal irrigations can help relieve pressure your sinuses. Things like a Neti pot -Use Flonase twice a day for 5 days then daily to help reduce the inflammation and dry up your sinuses. -You can also use Mucinex. Be sure to drink plenty of water with this medication at least 8 ounces with every dose and it is important to drink 8 to 10 glasses of water per day. Water is a natural decongestant -Eat and drink things that are easy to swallow, like tea or soup, or popsicles. -Oral rinses such as: Salt water gargles and/or may use topical anesthetic (eg. Chloraseptic spray) or lozenges to relieve dryness or throat pain). -Frequent hand washing or hand medical underwriter is one of the best ways to prevent spread of infection. -Using a vaporizer or humidifier at night will also help thin secretions and help with coughing up phlegm. -Follow up with primary care provider in 7-10 days if condition is not improving - For new or worsening symptoms go directly to the nearest ER Take antibiotic for the cellulitis to the right breast. Most importantly is following up with primary care provider for further evaluation if symptoms are not improving or going directly to the emergency room for further evaluation. Today your blood pressure was 142/86 I recommend you follow-up with your primary care provider within 2 weeks to have this rechecked Patient Language: Turkmen Prescriptions: New cephalexin 500 mg capsule 500 mg PO QID 7 Days Qty: 28 0RF No Action norgestimate-ethinyl estradiol [Estarylla] 0.25-35 mg-mcg tablet 1 tablet PO DAILY hydroxyzine HCl 25 mg tablet 25 mg PO DAILY venlafaxine 150 mg capsule,extended release 24hr 150 mg PO DAILY sumatriptan succinate [Imitrex] 25 mg tablet See Rx Instructions .ROUTE .COMPLEX Qty: 4 0RF Rx Instructions: take 1 tab at onset of headache; if no relief may repeat 1 tab after at least 2 hrs; max = 4 tabs/24 hr Follow-up/Referrals: Harms,Madan Kelly M.D. [Primary Care Provider] - 2 Weeks ([facility] care follow up Blood pressure check Cellulitis) Stand Alone Forms: Work/School Release IP Time of Disposition: 18:36
[2025-01-12 18:08] VITALS: BP 142/86; PULSE 113; RESP 16; TEMP 36.4; O2SAT 98
[2025-01-12 18:45] LABS: EDCOVIDSCREEN Negative (Negative); EDINFLUASCREEN Negative (Negative); EDINFLUBSCREEN Negative (Negative)
== END 2025-01-12 18:41 | disposition home or self-care (01) ==
PROVIDERS: Emergency Provider Nurse Practitioner; PCP Family Medicine
DX: N61.0 Mastitis without abscess (principal); Z20.822 Contact with and (suspected) exposure to COVID-19; K21.9 Gastro-esophageal reflux disease without esophagitis; J45.909 Unspecified asthma, uncomplicated; F41.9 Anxiety disorder, unspecified; F32.A Depression, unspecified
CPT/HCPCS: 87426; 87804; 99213; G0463